=== PATIENT | male | born 1950 | race Caucasian/White ===

== ENCOUNTER 2017-08-01 10:56 | Inpatient (IN) | payer MEDICARE ==
[~2017-08-01] VITALS: Ht 182.9 cm; Wt 89.7 kg
[~2017-08-01 10:56] MED LIST: AMLO-511 PO; CARV6 PO; FURO20 PO; RIVA15T PO
[2017-08-01] MEDS ORDERED: ASPIRIN 81 MG CHEWABLE TABLET PO ONE (11:15)
[2017-08-01] MEDS ORDERED: LORazepam 2 MG/ML VIAL IVP ONE (11:30)
[2017-08-01 11:45] LABS: BASOPHILS % (AUTO) 0.6 % (0.0-2.0); EOSINOPHILS % (AUTO) 0.2 % (1.0-6.0); HEMOGLOBIN 16.1 g/dL (13.5-17.5); LYMPHOCYTES # (AUTO) 1.2 K/uL (1.0-4.8); LYMPHOCYTES % (AUTO) 12.8 % (22.0-44.0); MEAN CORPUSCULAR HEMOGLOBIN 31.7 pg (26.0-34.0); MEAN CORPUSCULAR HGB CONC 33.5 G/dL (31.0-37.0); MEAN CORPUSCULAR VOLUME 95 fL (80-100); MONOCYTES # (AUTO) 0.8 K/uL (0.1-1.0); MONOCYTES % (AUTO) 8.5 % (2.0-9.0); NEUTROPHILS # (AUTO) 7.5 K/uL (1.8-7.7); NEUTROPHILS % (AUTO) 77.9 % (40.0-70.0); PLATELET COUNT (AUTO) 190 K/uL (150-450); RED BLOOD CELL COUNT(AUTO) 5.07 MIL/uL (4.50-5.90); RED CELL DISTRIBUTION WIDTH 15.6 % (11.5-14.5)
[2017-08-01 11:49] LABS: CALCIUM, TOTAL 8.9 mg/dL (8.8-10.5); CREATININE 1.74 mg/dL (0.60-1.30); POTASSIUM 3.9 mmol/L (3.5-5.1)
[2017-08-01 11:52] LABS: INR 1.1 (0.9-1.1); PROTHROMBIN TIME 11.4 SEC (9.4-11.6)
[2017-08-01 12:14] LABS: ALBUMIN 3.4 g/dL (3.4-5.0); BILIRUBIN,TOTAL 0.7 mg/dL (0.1-1.0); CKMB RELATIVE INDEX 4.4 % (0.0-4.0); CREATINE KINASE MB 8.3 ng/mL (0-5); THYROID STIMULATING HORMONE 3.51 uIU/mL (0.36-3.74); TOTAL PROTEIN, SERUM 6.9 g/dL (6.4-8.2)
[2017-08-01] MEDS ORDERED: DILTIAZEM HCL 5 MG/ML 5 ML VIAL IVP ONE (12:15)
[2017-08-01] MEDS ORDERED: NITROGLYCERIN 2% (1 GM=INCH) PACKET TP ONE (12:15)
[2017-08-01] MEDS: NITROGLYCERIN 0.4 MG SUBLINGUAL TABLET #25 SL ONE ×2 (13:01→13:19)
[2017-08-01] MEDS ORDERED: DILTIAZEM HCL 125 MG in DEXTROSE 5%-WATER 100 ML IV PRN (13:30)
[2017-08-01 15:16] LABS: APPEARANCE,URINE CLEAR (CLEAR); BILIRUBIN,URINE NEGATIVE (NEGATIVE); GLUCOSE, URINE (UA) NEGATIVE (NEGATIVE); KETONES,URINE NEGATIVE (NEGATIVE); LEUKOCYTE ESTERASE ,URINE NEGATIVE (NEGATIVE); NITRATE,URINE NEGATIVE (NEGATIVE); OCCULT BLOOD,URINE NEGATIVE (NEGATIVE); PH,URINE 5.5 (5.0-8.0); PROTEIN,URINE SEE CONFIRM (NEGATIVE); UROBILINOGEN,URINE 0.2 mg/dL (<=1.0)
[2017-08-01 15:19] LABS: AMPHET/METH SCREEN,URINE NEGATIVE (NEGATIVE); BARBITURATE SCREEN, URINE NEGATIVE (NEGATIVE); BENZODIAZEPINES SCREEN,URINE NEGATIVE (NEGATIVE); CANNABINOID SCREEN,URINE NEGATIVE (NEGATIVE); COCAINE SCREEN,URINE NEGATIVE (NEGATIVE); METHADONE SCREEN, URINE NEGATIVE (NEGATIVE); OPIATE SCREEN,URINE NEGATIVE (NEGATIVE)
[2017-08-01 15:22] LABS: PHENCYCLIDINE SCREEN,URINE NEGATIVE (NEGATIVE)
[2017-08-01] MEDS ORDERED: METOPROLOL SUCCINATE 25 MG ER TABLET PO ONE (15:45)
[2017-08-01] MEDS ORDERED: ACETAMINOPHEN 325 MG TABLET PO PRN ×2 (15:45→20:00)
[2017-08-01] MEDS ORDERED: 0.9% SODIUM CHLORIDE 10 ML SYRINGE IVP PRN (15:45)
[2017-08-01 15:47] LABS: SULFOSALICYLIC ACID,URINE 2+ (Negative)
[2017-08-01 15:51] LABS: BACTERIA,URINE Rare /HPF (None Seen); RBC,URINE 0-2 /HPF (0-2); WBC,URINE None Seen /HPF (0-5)
[2017-08-01 15:52] LABS: HYALINE CASTS, URINE 0-2 /LPF (None Seen); SQUAMOUS EPITHELIAL CELL,UR Rare /LPF (None Seen)
[2017-08-01] MEDS: METOPROLOL TARTRATE 25 MG TABLET PO SCH ×2 (16:18→22:15)
[2017-08-01] MEDS: APIXABAN 5 MG TABLET PO SCH ×2 (16:19→22:15)
[2017-08-01] MEDS ORDERED: DILTIAZEM HCL 125 MG in DEXTROSE 5%-WATER 100 ML IV SCH (20:00)
[2017-08-01] MEDS ORDERED: BISACODYL 10 MG RECTAL RECTAL SUPPOSITORY PR PRN (20:00)
[2017-08-01] MEDS ORDERED: ONDANSETRON HCL 4 MG/2 ML VIAL IVP PRN (20:00)
[2017-08-01] MEDS ORDERED: ZOLPIDEM TARTRATE 5 MG TABLET PO PRN (20:00)
[2017-08-01] MEDS ORDERED: HYDROCODONE/ACETAMINOPHEN 5-325 MG TABLET PO PRN (20:00)
[2017-08-01] MEDS ORDERED: MAGNESIUM HYDROXIDE SUSPENSION 30 ML UDCUP PO PRN (20:00)
[2017-08-01 20:56] VITALS: BP 117/79
[2017-08-01] MEDS ORDERED: METOPROLOL SUCCINATE 25 MG ER TABLET PO SCH ×2 (21:00)
[2017-08-01] MEDS ORDERED: DILTIAZEM HCL 125 MG in DEXTROSE 5%-WATER 100 ML IV ONE (22:00)
[2017-08-01] MEDS: DOCUSATE SODIUM 100 MG CAPSULE PO SCH (22:15)
[2017-08-01 23:33] VITALS: BP 118/62
[2017-08-02 04:01] VITALS: BP 114/59
[2017-08-02 06:27] LABS: BASOPHILS % (AUTO) 0.4 % (0.0-2.0); EOSINOPHILS % (AUTO) 0.4 % (1.0-6.0); HEMATOCRIT 43.6 % (41-53); INR 1.2 (0.9-1.1); LYMPHOCYTES # (AUTO) 1.6 K/uL (1.0-4.8); MEAN CORPUSCULAR HEMOGLOBIN 32.3 pg (26.0-34.0); MEAN CORPUSCULAR HGB CONC 34.4 G/dL (31.0-37.0); MEAN CORPUSCULAR VOLUME 94 fL (80-100); MONOCYTES % (AUTO) 10.4 % (2.0-9.0); NEUTROPHILS # (AUTO) 7.3 K/uL (1.8-7.7); NEUTROPHILS % (AUTO) 72.8 % (40.0-70.0); PLATELET COUNT (AUTO) 195 K/uL (150-450); PROTHROMBIN TIME 12.5 SEC (9.4-11.6); RED BLOOD CELL COUNT(AUTO) 4.64 MIL/uL (4.50-5.90); RED CELL DISTRIBUTION WIDTH 15.3 % (11.5-14.5)
[2017-08-02 07:23] VITALS: BP 130/91
[2017-08-02 07:27] LABS: BILIRUBIN,TOTAL 1.1 mg/dL (0.1-1.0); CALCIUM, TOTAL 8.5 mg/dL (8.8-10.5); CREATININE 2.43 mg/dL (0.60-1.30); POTASSIUM 4.2 mmol/L (3.5-5.1)
[2017-08-02] MEDS: DOCUSATE SODIUM 100 MG CAPSULE PO SCH ×2 (08:11→21:00)
[2017-08-02] MEDS: APIXABAN 5 MG TABLET PO SCH ×2 (08:11→21:00)
[2017-08-02] MEDS: HEPARIN SODIUM,PORCINE 5,000 UNITS/ML VIAL SQ SCH ×3 (08:11→17:06)
[2017-08-02] MEDS: METOPROLOL TARTRATE 25 MG TABLET PO SCH ×2 (08:11→21:00)
[2017-08-02] MEDS: PANTOPRAZOLE SODIUM 40 MG DR TABLET PO SCH (08:11)
[2017-08-02] MEDS ORDERED: FUROSEMIDE 20 MG/2 ML VIAL IVP SCH (09:00)
[2017-08-02 11:11] VITALS: BP 119/77
[2017-08-02] MEDS ORDERED: SODIUM CHLORIDE 0.9% 1,000 ML IV ONE (11:30)
[2017-08-02 15:43] VITALS: BP 140/70
[2017-08-02] MEDS ORDERED: LORazepam 2 MG/ML VIAL IVP PRN (17:00)
[2017-08-02 19:39] VITALS: BP 129/76
[2017-08-02] MEDS: LORazepam 2 MG/ML VIAL IVP PRN (22:24)
[2017-08-03] VITALS (8 sets, daily range): BP systolic 142–187; BP diastolic 53–119
[2017-08-03] MEDS: MORPHINE SULFATE 2 MG/ML SYRINGE IVP PRN ×2 (00:29→20:48)
[2017-08-03] MEDS: HEPARIN SODIUM,PORCINE 5,000 UNITS/ML VIAL SQ SCH ×3 (00:32→15:52)
[2017-08-03] MEDS: LORazepam 2 MG/ML VIAL IVP PRN ×4 (03:38→19:38)
[2017-08-03 07:30] LABS: CALCIUM, TOTAL 8.5 mg/dL (8.8-10.5); CREATININE 2.59 mg/dL (0.60-1.30)
[2017-08-03] MEDS: APIXABAN 5 MG TABLET PO SCH ×2 (08:24→19:43)
[2017-08-03] MEDS: DOCUSATE SODIUM 100 MG CAPSULE PO SCH ×2 (08:24→19:43)
[2017-08-03] MEDS: METOPROLOL TARTRATE 25 MG TABLET PO SCH (08:25)
[2017-08-03] MEDS: PANTOPRAZOLE SODIUM 40 MG DR TABLET PO SCH (08:26)
[2017-08-03] MEDS: HALOPERIDOL LACTATE 5 MG/ML VIAL IM PRN ×3 (10:57→23:13)
[2017-08-03] MEDS: LACTULOSE 200 GM/300 ML RECTAL SOLUTION PR SCH ×2 (12:30→20:46)
[2017-08-03] MEDS: METOPROLOL TARTRATE 5 MG/5 ML VIAL IVP SCH ×2 (13:57→18:29)
[2017-08-03] MEDS ORDERED: SODIUM CHLORIDE 0.9% IRRIG BTL 1,000 ML IRRIG ONE (20:00)
[2017-08-04] VITALS (8 sets, daily range): BP systolic 108–162; BP diastolic 81–113
[2017-08-04] MEDS: HEPARIN SODIUM,PORCINE 5,000 UNITS/ML VIAL SQ SCH ×2 (00:07→09:23)
[2017-08-04] MEDS: METOPROLOL TARTRATE 5 MG/5 ML VIAL IVP SCH ×5 (00:07→23:34)
[2017-08-04] MEDS: LORazepam 2 MG/ML VIAL IVP PRN ×2 (00:21→05:25)
[2017-08-04] MEDS: APIXABAN 5 MG TABLET PO SCH (09:00)
[2017-08-04] MEDS: PANTOPRAZOLE SODIUM 40 MG DR TABLET PO SCH (09:00)
[2017-08-04] MEDS: DOCUSATE SODIUM 100 MG CAPSULE PO SCH ×2 (09:00→21:37)
[2017-08-04] MEDS ORDERED: SODIUM CHLORIDE 0.9% 1,000 ML IV ONE (09:18)
[2017-08-04] MEDS: LACTULOSE 200 GM/300 ML RECTAL SOLUTION PR SCH ×2 (09:23→21:37)
[2017-08-04] MEDS ORDERED: AMIODARONE HCL 360 MG in DEXTROSE 5%-WATER 242.8 ML IV ONE (11:15)
[2017-08-04] MEDS ORDERED: AMIODARONE HCL 150 MG in DEXTROSE 5%-WATER 97 ML IV ONE (11:15)
[2017-08-04] MEDS ORDERED: HEPARIN SODIUM,PORCINE 5,000 UNITS/ML VIAL IVP ONE (12:45)
[2017-08-04] MEDS ORDERED: HEPARIN SODIUM,PORCINE 5,000 UNITS/ML VIAL IVP PRN ×2 (12:45)
[2017-08-04 12:57] LABS: BASOPHILS % (AUTO) 0.4 % (0.0-2.0); EOSINOPHILS % (AUTO) 0.1 % (1.0-6.0); HEMATOCRIT 45.4 % (41-53); HEMOGLOBIN 15.2 g/dL (13.5-17.5); LYMPHOCYTES # (AUTO) 1.2 K/uL (1.0-4.8); LYMPHOCYTES % (AUTO) 13.8 % (22.0-44.0); MEAN CORPUSCULAR HGB CONC 33.5 G/dL (31.0-37.0); MEAN CORPUSCULAR VOLUME 96 fL (80-100); MONOCYTES # (AUTO) 0.8 K/uL (0.1-1.0); MONOCYTES % (AUTO) 9.9 % (2.0-9.0); NEUTROPHILS # (AUTO) 6.4 K/uL (1.8-7.7); NEUTROPHILS % (AUTO) 75.8 % (40.0-70.0); PLATELET COUNT (AUTO) 212 K/uL (150-450); RED BLOOD CELL COUNT(AUTO) 4.74 MIL/uL (4.50-5.90)
[2017-08-04 13:12] LABS: INR 1.3 (0.9-1.1); PROTHROMBIN TIME 13.3 SEC (9.4-11.6)
[2017-08-04] MEDS: HALOPERIDOL LACTATE 5 MG/ML VIAL IM PRN (13:55)
[2017-08-04] MEDS: MORPHINE SULFATE 2 MG/ML SYRINGE IVP PRN (14:26)
[2017-08-04] MEDS: HEPARIN SODIUM 25000 UNITS/D5W 250 ML IV PRN (14:27)
[2017-08-04] MEDS ORDERED: MAGNESIUM SULFATE 2 GM, MVI, ADULT NO.1 WITH VIT K 10 ML, THIAMINE HCL 100 MG, FOLIC AC... IV ONE ×5 (15:00)
[2017-08-04 16:02] LABS: ABG A-A DIFF O2 122.4 mmHg (10-20.0); ABG BASE EXCESS -8.9 mmol/L (-2.0-3.0); ABG CARBOXYHEMOGLOBIN 1.5 % (0.0-1.5); ABG HCO3 17.9 mmol/L (22.0-26.0); ABG METHEMOGLOBIN 0.2 % (0.0-1.5); ABG OXYGEN CONTENT 19.8 mL/dL (15.0-23.0); ABG OXYGEN SATURATION 95.2 % (95.0-98.0); ABG OXYHEMOGLOBIN 93.6 % (94.0-100.0); ABG PCO2 39 mmHg (35-45); ABG PH 7.282 (7.35-7.450); PO2, ARTERIAL BG 89.4 mmHg (79.0-87.0); SOURCE, BLOOD GAS ARTERIAL; TEMPERATURE, FAHRENHEIT, BG 98.6 FAHREN (96.0-98.6)
[2017-08-04 16:03] LABS: SITE, BLOOD GAS RT RADIAL
[2017-08-04 16:04] LABS: O2 DEVICE,BLOOD GAS CANNULA (ROOM AIR)
[2017-08-04] MEDS ORDERED: ETOMIDATE 2 MG/ML 10 ML VIAL IV ONE (16:53)
[2017-08-04] MEDS ORDERED: VECURONIUM BROMIDE 10 MG/VIAL IV ONE (16:53)
[2017-08-04] MEDS ORDERED: RAPID SEQUENCE KIT [RSI] 1 EACH KIT ONE (16:54)
[2017-08-04] MEDS ORDERED: AMIODARONE HCL 540 MG in DEXTROSE 5%-WATER 239.2 ML IV ONE (17:15)
[2017-08-04] MEDS ORDERED: PROPOFOL 1000 MG/ISO-OSM 100 ML IV PRN (17:25)
[2017-08-04] MEDS ORDERED: ETOMIDATE 2 MG/ML 10 ML VIAL IVP ONE (17:30)
[2017-08-04] MEDS ORDERED: VECURONIUM BROMIDE 10 MG/VIAL IVP ONE (17:30)
[2017-08-04 19:00] LABS: CALCIUM, TOTAL 8.1 mg/dL (8.8-10.5); CREATININE 3.42 mg/dL (0.60-1.30); PHOSPHORUS 8.3 mg/dL (2.5-4.9); POTASSIUM 4.4 mmol/L (3.5-5.1)
[2017-08-04 19:36] LABS: ABG A-A DIFF O2 82.6 mmHg (10-20.0); ABG BASE EXCESS -7.8 mmol/L (-2.0-3.0); ABG CARBOXYHEMOGLOBIN 1.1 % (0.0-1.5); ABG HCO3 18.7 mmol/L (22.0-26.0); ABG METHEMOGLOBIN 0.3 % (0.0-1.5); ABG OXYGEN CONTENT 20.5 mL/dL (15.0-23.0); ABG OXYHEMOGLOBIN 97.6 % (94.0-100.0); ABG PCO2 38 mmHg (35-45); ABG PH 7.306 (7.35-7.450); ABG TOTAL HEMOGLOBIN 14.7 G/dL (12.0-18.0); PO2, ARTERIAL BG 159.5 mmHg (79.0-87.0); SOURCE, BLOOD GAS ARTERIAL; TEMPERATURE, FAHRENHEIT, BG 97.5 FAHREN (96.0-98.6)
[2017-08-04 19:37] LABS: O2 DEVICE,BLOOD GAS VENTILATOR (ROOM AIR); PEEP,BG 5 cm H2O; SITE, BLOOD GAS RT RADIAL; VT, ABG 550 ml
[2017-08-05] VITALS (8 sets, daily range): BP systolic 105–151; BP diastolic 58–110
[2017-08-05] MEDS ORDERED: PROPOFOL 1000 MG/ISO-OSM 100 ML IV ONE (01:13)
[2017-08-05] MEDS: PROPOFOL 1000 MG/ISO-OSM 100 ML IV PRN ×3 (01:22→17:11)
[2017-08-05 03:15] LABS: BASOPHILS % (AUTO) 0.2 % (0.0-2.0); EOSINOPHILS % (AUTO) 0.2 % (1.0-6.0); HEMATOCRIT 44.1 % (41-53); HEMOGLOBIN 14.6 g/dL (13.5-17.5); LYMPHOCYTES # (AUTO) 1.1 K/uL (1.0-4.8); LYMPHOCYTES % (AUTO) 11.5 % (22.0-44.0); MEAN CORPUSCULAR HEMOGLOBIN 31.7 pg (26.0-34.0); MEAN CORPUSCULAR VOLUME 96 fL (80-100); MONOCYTES # (AUTO) 1.2 K/uL (0.1-1.0); MONOCYTES % (AUTO) 12.2 % (2.0-9.0); NEUTROPHILS # (AUTO) 7.3 K/uL (1.8-7.7); NEUTROPHILS % (AUTO) 75.9 % (40.0-70.0); PLATELET COUNT (AUTO) 207 K/uL (150-450); RED BLOOD CELL COUNT(AUTO) 4.59 MIL/uL (4.50-5.90)
[2017-08-05 03:24] LABS: ALBUMIN 2.9 g/dL (3.4-5.0); BILIRUBIN,TOTAL 1.3 mg/dL (0.1-1.0); CALCIUM, TOTAL 8.1 mg/dL (8.8-10.5); CREATININE 3.72 mg/dL (0.60-1.30); MAGNESIUM 3.5 mg/dL (1.80-2.40); POTASSIUM 4.4 mmol/L (3.5-5.1); TOTAL PROTEIN, SERUM 5.6 g/dL (6.4-8.2)
[2017-08-05 03:37] LABS: PHOSPHORUS 8.7 mg/dL (2.5-4.9)
[2017-08-05 03:45] LABS: LYMPHOCYTES % (MANUAL) 17 % (22-44); MONOCYTES % (MANUAL) 15 % (2-9); SEGMENTED NEUTROPHILS % 68 % (40-70)
[2017-08-05] MEDS: METOPROLOL TARTRATE 5 MG/5 ML VIAL IVP SCH ×3 (05:52→17:10)
[2017-08-05] MEDS ORDERED: SODIUM CHLORIDE 0.9% 250 ML IV ONE (06:17)
[2017-08-05 08:10] LABS: ABG METHEMOGLOBIN 0.2 % (0.0-1.5); SOURCE, BLOOD GAS ARTERIAL; TEMPERATURE, FAHRENHEIT, BG 97.8 FAHREN (96.0-98.6)
[2017-08-05 08:12] LABS: ABG A-A DIFF O2 90.9 mmHg (10-20.0); ABG BASE EXCESS -7.5 mmol/L (-2.0-3.0); ABG CARBOXYHEMOGLOBIN 1.1 % (0.0-1.5); ABG HCO3 19.1 mmol/L (22.0-26.0); ABG OXYGEN CONTENT 20.7 mL/dL (15.0-23.0); ABG OXYGEN SATURATION 98.1 % (95.0-98.0); ABG OXYHEMOGLOBIN 96.8 % (94.0-100.0); ABG PCO2 35 mmHg (35-45); ABG PH 7.334 (7.35-7.450); ABG TOTAL HEMOGLOBIN 15.1 G/dL (12.0-18.0)
[2017-08-05 08:13] LABS: O2 DEVICE,BLOOD GAS VENTILATOR (ROOM AIR); PEEP,BG 5 cm H2O; SITE, BLOOD GAS RT RADIAL; VT, ABG 550 ml
[2017-08-05] MEDS ORDERED: LACTULOSE 20 GM/30 ML SOLUTION UDCUP PO PRN (08:30)
[2017-08-05] MEDS: PANTOPRAZOLE SODIUM 40 MG DR TABLET PO SCH (08:46)
[2017-08-05] MEDS: DOCUSATE SODIUM 100 MG CAPSULE PO SCH ×2 (08:46→21:24)
[2017-08-05] MEDS: LACTULOSE 20 GM/30 ML SOLUTION UDCUP PO SCH ×2 (08:59→21:24)
[2017-08-05] MEDS ORDERED: HEPARIN SODIUM 1000 UNITS/NS 500 ML ONE (10:23)
[2017-08-05] MEDS ORDERED: HEPARIN SODIUM,PORCINE 1,000 UNITS/ML 10 ML VIAL ONE (10:23)
[2017-08-05] MEDS ORDERED: LIDOCAINE HCL/PF 1% 30 ML VIAL ONE (10:23)
[2017-08-05] MEDS ORDERED: CeFAZolin 1 GM/DEXTROSE 0 ML IV ONE (10:38)
[2017-08-05] MEDS: AMIODARONE HCL 750 MG in DEXTROSE 5%-WATER 485 ML IV SCH (10:43)
[2017-08-05 13:06] LABS: CKMB RELATIVE INDEX 1.3 % (0.0-4.0); CREATINE KINASE MB 5.3 ng/mL (0-5)
[2017-08-05] MEDS: HEPARIN SODIUM 25000 UNITS/D5W 250 ML IV PRN (14:07)
[2017-08-05] MEDS ORDERED: HEPARIN SODIUM,PORCINE 1,000 UNITS/ML VIAL IVP SCH (15:45)
[2017-08-05] MEDS ORDERED: HEPARIN SODIUM,PORCINE 1,000 UNITS/ML VIAL IVP ONE (16:52)
[2017-08-06] VITALS (8 sets, daily range): BP systolic 129–158; BP diastolic 62–98
[2017-08-06] MEDS: METOPROLOL TARTRATE 5 MG/5 ML VIAL IVP SCH ×5 (00:23→23:33)
[2017-08-06] MEDS: PROPOFOL 1000 MG/ISO-OSM 100 ML IV PRN ×4 (00:31→23:06)
[2017-08-06 05:22] LABS: BASOPHILS % (AUTO) 0.3 % (0.0-2.0); EOSINOPHILS % (AUTO) 0.4 % (1.0-6.0); HEMATOCRIT 41.5 % (41-53); HEMOGLOBIN 13.9 g/dL (13.5-17.5); LYMPHOCYTES # (AUTO) 0.8 K/uL (1.0-4.8); LYMPHOCYTES % (AUTO) 8.2 % (22.0-44.0); MEAN CORPUSCULAR HGB CONC 33.5 G/dL (31.0-37.0); MEAN CORPUSCULAR VOLUME 96 fL (80-100); MONOCYTES # (AUTO) 1.3 K/uL (0.1-1.0); MONOCYTES % (AUTO) 13.2 % (2.0-9.0); NEUTROPHILS # (AUTO) 7.5 K/uL (1.8-7.7); NEUTROPHILS % (AUTO) 77.9 % (40.0-70.0); PLATELET COUNT (AUTO) 187 K/uL (150-450); RED BLOOD CELL COUNT(AUTO) 4.35 MIL/uL (4.50-5.90); RED CELL DISTRIBUTION WIDTH 16.2 % (11.5-14.5)
[2017-08-06 05:43] LABS: ALBUMIN 2.7 g/dL (3.4-5.0); BILIRUBIN,TOTAL 0.9 mg/dL (0.1-1.0); CREATININE 3.69 mg/dL (0.60-1.30); PHOSPHORUS 6.4 mg/dL (2.5-4.9); POTASSIUM 3.9 mmol/L (3.5-5.1); TOTAL PROTEIN, SERUM 5.8 g/dL (6.4-8.2)
[2017-08-06 08:21] LABS: ABG BASE EXCESS -8.9 mmol/L (-2.0-3.0); ABG CARBOXYHEMOGLOBIN 1.2 % (0.0-1.5); ABG HCO3 18.8 mmol/L (22.0-26.0); ABG METHEMOGLOBIN 0.4 % (0.0-1.5); ABG OXYGEN CONTENT 21.1 mL/dL (15.0-23.0); ABG OXYGEN SATURATION 99.7 % (95.0-98.0); ABG OXYHEMOGLOBIN 98.1 % (94.0-100.0); ABG PCO2 26 mmHg (35-45); ABG TOTAL HEMOGLOBIN 14.8 G/dL (12.0-18.0); PO2, ARTERIAL BG 306.6 mmHg (79.0-87.0); SOURCE, BLOOD GAS ARTERIAL; TEMPERATURE, FAHRENHEIT, BG 98.6 FAHREN (96.0-98.6)
[2017-08-06 08:22] LABS: O2 DEVICE,BLOOD GAS VENTILATOR (ROOM AIR); SITE, BLOOD GAS RT RADIAL
[2017-08-06 08:23] LABS: PEEP,BG 5 cm H2O; VT, ABG 550 ml
[2017-08-06] MEDS: LACTULOSE 20 GM/30 ML SOLUTION UDCUP PO SCH ×2 (09:21→20:39)
[2017-08-06] MEDS: DOCUSATE SODIUM 100 MG CAPSULE PO SCH ×2 (09:21→20:39)
[2017-08-06] MEDS: PANTOPRAZOLE SODIUM 40 MG DR TABLET PO SCH (09:21)
[2017-08-06] MEDS ORDERED: POTASSIUM CHL 10 MEQ/WATER 50 ML IV ONE (09:45)
[2017-08-06] MEDS: AMIODARONE HCL 750 MG in DEXTROSE 5%-WATER 485 ML IV SCH (11:31)
[2017-08-06] MEDS ORDERED: SODIUM CHLORIDE 0.9% 2,000 ML IV ONE (11:42)
[2017-08-06] MEDS ORDERED: DIGOXIN 250 MCG/ML 2 ML AMP IVP ONE (13:30)
[2017-08-06] MEDS: HEPARIN SODIUM 25000 UNITS/D5W 250 ML IV PRN (14:27)
[2017-08-06] MEDS ORDERED: HEPARIN SODIUM,PORCINE 1,000 UNITS/ML VIAL IVP ONE (17:04)
[2017-08-06] MEDS: MORPHINE SULFATE 2 MG/ML SYRINGE IVP PRN (22:12)
[2017-08-07] VITALS (11 sets, daily range): BP systolic 112–155; BP diastolic 66–99
[2017-08-07] MEDS ORDERED: SODIUM CHLORIDE 0.9% 250 ML IV ONE (04:56)
[2017-08-07] MEDS: PROPOFOL 1000 MG/ISO-OSM 100 ML IV PRN ×3 (05:05→23:15)
[2017-08-07] MEDS: METOPROLOL TARTRATE 5 MG/5 ML VIAL IVP SCH (05:07)
[2017-08-07 05:30] LABS: BASOPHILS % (AUTO) 0.4 % (0.0-2.0); EOSINOPHILS % (AUTO) 0.8 % (1.0-6.0); HEMOGLOBIN 13.1 g/dL (13.5-17.5); LYMPHOCYTES # (AUTO) 0.6 K/uL (1.0-4.8); LYMPHOCYTES % (AUTO) 7.5 % (22.0-44.0); MEAN CORPUSCULAR HEMOGLOBIN 31.8 pg (26.0-34.0); MEAN CORPUSCULAR HGB CONC 33.6 G/dL (31.0-37.0); MEAN CORPUSCULAR VOLUME 95 fL (80-100); MONOCYTES # (AUTO) 1.2 K/uL (0.1-1.0); MONOCYTES % (AUTO) 14.2 % (2.0-9.0); NEUTROPHILS # (AUTO) 6.6 K/uL (1.8-7.7); NEUTROPHILS % (AUTO) 77.1 % (40.0-70.0); PLATELET COUNT (AUTO) 154 K/uL (150-450); RED BLOOD CELL COUNT(AUTO) 4.12 MIL/uL (4.50-5.90); RED CELL DISTRIBUTION WIDTH 15.8 % (11.5-14.5)
[2017-08-07 06:00] LABS: CREATININE 2.44 mg/dL (0.60-1.30); MAGNESIUM 2.3 mg/dL (1.80-2.40); PHOSPHORUS 4.4 mg/dL (2.5-4.9); POTASSIUM 3.7 mmol/L (3.5-5.1)
[2017-08-07] MEDS: MORPHINE SULFATE 2 MG/ML SYRINGE IVP PRN (07:57)
[2017-08-07] MEDS: LACTULOSE 20 GM/30 ML SOLUTION UDCUP PO SCH ×3 (07:58→20:46)
[2017-08-07] MEDS: PANTOPRAZOLE SODIUM 40 MG DR TABLET PO SCH (07:58)
[2017-08-07] MEDS: DOCUSATE SODIUM 100 MG CAPSULE PO SCH ×2 (07:58→20:44)
[2017-08-07] MEDS: HEPARIN SODIUM 25000 UNITS/D5W 250 ML IV PRN (09:34)
[2017-08-07] MEDS: APIXABAN 5 MG TABLET PO SCH ×2 (10:16→20:44)
[2017-08-07] MEDS: METOPROLOL TARTRATE 25 MG TABLET PO SCH ×2 (10:16→20:44)
[2017-08-07] MEDS: RIFAXIMIN 550 MG TABLET PO SCH ×2 (10:16→20:44)
[2017-08-07] MEDS: AMIODARONE HCL 750 MG in DEXTROSE 5%-WATER 485 ML IV SCH (11:51)
[2017-08-07] MEDS: MORPHINE SULFATE 4 MG/ML SYRINGE IVP PRN ×2 (17:33→23:20)
[2017-08-08] VITALS (9 sets, daily range): BP systolic 125–170; BP diastolic 62–94
[2017-08-08 05:08] LABS: BASOPHILS % (AUTO) 0.4 % (0.0-2.0); EOSINOPHILS % (AUTO) 1.2 % (1.0-6.0); HEMATOCRIT 38.9 % (41-53); HEMOGLOBIN 13.1 g/dL (13.5-17.5); LYMPHOCYTES % (AUTO) 11.5 % (22.0-44.0); MEAN CORPUSCULAR HEMOGLOBIN 32.3 pg (26.0-34.0); MEAN CORPUSCULAR HGB CONC 33.8 G/dL (31.0-37.0); MEAN CORPUSCULAR VOLUME 96 fL (80-100); MONOCYTES # (AUTO) 1.2 K/uL (0.1-1.0); MONOCYTES % (AUTO) 14.2 % (2.0-9.0); NEUTROPHILS # (AUTO) 6.2 K/uL (1.8-7.7); NEUTROPHILS % (AUTO) 72.7 % (40.0-70.0); PLATELET COUNT (AUTO) 117 K/uL (150-450); RED BLOOD CELL COUNT(AUTO) 4.06 MIL/uL (4.50-5.90); RED CELL DISTRIBUTION WIDTH 16.2 % (11.5-14.5)
[2017-08-08 05:19] LABS: CALCIUM, TOTAL 8.3 mg/dL (8.8-10.5); CREATININE 2.46 mg/dL (0.60-1.30); MAGNESIUM 2.6 mg/dL (1.80-2.40); PHOSPHORUS 4.7 mg/dL (2.5-4.9); POTASSIUM 3.8 mmol/L (3.5-5.1)
[2017-08-08] MEDS: PROPOFOL 1000 MG/ISO-OSM 100 ML IV PRN ×3 (05:26→23:58)
[2017-08-08 05:45] LABS: PLATELET MORPHOLOGY COMMENT LARGE PLTS PRESENT
[2017-08-08] MEDS ORDERED: SODIUM CHLORIDE 0.9% 250 ML IV ONE ×2 (06:13→21:55)
[2017-08-08] MEDS ORDERED: SODIUM CHLORIDE 0.9% 2,000 ML IV ONE (07:59)
[2017-08-08 08:28] LABS: ABG A-A DIFF O2 109.2 mmHg (10-20.0); ABG BASE EXCESS 0.4 mmol/L (-2.0-3.0); ABG CARBOXYHEMOGLOBIN 1.3 % (0.0-1.5); ABG HCO3 24.9 mmol/L (22.0-26.0); ABG METHEMOGLOBIN 0.3 % (0.0-1.5); ABG OXYGEN SATURATION 97.5 % (95.0-98.0); ABG OXYHEMOGLOBIN 95.9 % (94.0-100.0); ABG PCO2 40 mmHg (35-45); ABG PH 7.414 (7.35-7.450); PO2, ARTERIAL BG 93.9 mmHg (79.0-87.0); SOURCE, BLOOD GAS ARTERIAL; TEMPERATURE, FAHRENHEIT, BG 98.6 FAHREN (96.0-98.6)
[2017-08-08 08:29] LABS: O2 DEVICE,BLOOD GAS VENTILATOR (ROOM AIR); PEEP,BG 5 cm H2O; SITE, BLOOD GAS LFT RADIAL; VT, ABG 550 ml
[2017-08-08] MEDS: APIXABAN 5 MG TABLET PO SCH ×2 (08:37→21:57)
[2017-08-08] MEDS: LACTULOSE 20 GM/30 ML SOLUTION UDCUP PO SCH ×3 (08:37→21:57)
[2017-08-08] MEDS: RIFAXIMIN 550 MG TABLET PO SCH ×2 (08:37→21:57)
[2017-08-08] MEDS: METOPROLOL TARTRATE 25 MG TABLET PO SCH (08:37)
[2017-08-08] MEDS: PANTOPRAZOLE SODIUM 40 MG DR TABLET PO SCH (08:38)
[2017-08-08] MEDS: DOCUSATE SODIUM 100 MG CAPSULE PO SCH ×2 (08:38→21:00)
[2017-08-08] MEDS: AMIODARONE HCL 750 MG in DEXTROSE 5%-WATER 485 ML IV SCH (10:47)
[2017-08-08] MEDS: MORPHINE SULFATE 4 MG/ML SYRINGE IVP PRN (14:03)
[2017-08-08] MEDS ORDERED: HEPARIN SODIUM,PORCINE 1,000 UNITS/ML VIAL IVP ONE (17:37)
[2017-08-08] MEDS: METOPROLOL TARTRATE 50 MG TABLET PO SCH (21:57)
[2017-08-09] VITALS: BP 125/68
[2017-08-09 04:00] VITALS: BP 104/66
[2017-08-09 05:19] LABS: BASOPHILS % (AUTO) 0.5 % (0.0-2.0); EOSINOPHILS % (AUTO) 2.9 % (1.0-6.0); HEMATOCRIT 36.8 % (41-53); HEMOGLOBIN 12.6 g/dL (13.5-17.5); LYMPHOCYTES # (AUTO) 0.7 K/uL (1.0-4.8); MEAN CORPUSCULAR HEMOGLOBIN 32.5 pg (26.0-34.0); MEAN CORPUSCULAR HGB CONC 34.3 G/dL (31.0-37.0); MEAN CORPUSCULAR VOLUME 95 fL (80-100); MONOCYTES # (AUTO) 1.2 K/uL (0.1-1.0); MONOCYTES % (AUTO) 14.1 % (2.0-9.0); NEUTROPHILS # (AUTO) 6.4 K/uL (1.8-7.7); NEUTROPHILS % (AUTO) 74.5 % (40.0-70.0); PLATELET COUNT (AUTO) 149 K/uL (150-450); RED BLOOD CELL COUNT(AUTO) 3.88 MIL/uL (4.50-5.90); RED CELL DISTRIBUTION WIDTH 15.8 % (11.5-14.5)
[2017-08-09 05:31] LABS: CALCIUM, TOTAL 8.1 mg/dL (8.8-10.5); CREATININE 2.13 mg/dL (0.60-1.30); MAGNESIUM 2.2 mg/dL (1.80-2.40); PHOSPHORUS 3.5 mg/dL (2.5-4.9); POTASSIUM 3.5 mmol/L (3.5-5.1)
[2017-08-09] MEDS: PROPOFOL 1000 MG/ISO-OSM 100 ML IV PRN ×4 (05:35→23:00)
[2017-08-09 08:00] VITALS: BP 119/73
[2017-08-09] MEDS: HALOPERIDOL LACTATE 5 MG/ML VIAL IM PRN (09:00)
[2017-08-09] MEDS: METOPROLOL TARTRATE 50 MG TABLET PO SCH ×2 (09:01→22:07)
[2017-08-09] MEDS: LACTULOSE 20 GM/30 ML SOLUTION UDCUP PO SCH ×3 (09:01→22:07)
[2017-08-09] MEDS: DOCUSATE SODIUM 100 MG CAPSULE PO SCH ×2 (09:01→22:07)
[2017-08-09] MEDS: PANTOPRAZOLE SODIUM 40 MG DR TABLET PO SCH (09:01)
[2017-08-09] MEDS: AMIODARONE HCL 750 MG in DEXTROSE 5%-WATER 485 ML IV SCH (11:30)
[2017-08-09 12:00] VITALS: BP 167/71
[2017-08-09] MEDS: RIFAXIMIN 550 MG TABLET PO SCH ×2 (14:32→22:07)
[2017-08-09] MEDS: APIXABAN 5 MG TABLET PO SCH ×2 (14:32→22:07)
[2017-08-09 16:00] VITALS: BP 120/68
[2017-08-09 20:00] VITALS: BP 119/75
[2017-08-10] VITALS: BP 103/70
[2017-08-10] MEDS: PROPOFOL 1000 MG/ISO-OSM 100 ML IV PRN ×4 (03:28→23:15)
[2017-08-10 04:00] VITALS: BP 99/70
[2017-08-10 05:14] LABS: BASOPHILS % (AUTO) 0.6 % (0.0-2.0); EOSINOPHILS % (AUTO) 3.4 % (1.0-6.0); HEMATOCRIT 37.5 % (41-53); HEMOGLOBIN 12.6 g/dL (13.5-17.5); LYMPHOCYTES # (AUTO) 0.8 K/uL (1.0-4.8); LYMPHOCYTES % (AUTO) 8.7 % (22.0-44.0); MEAN CORPUSCULAR HEMOGLOBIN 31.9 pg (26.0-34.0); MEAN CORPUSCULAR HGB CONC 33.6 G/dL (31.0-37.0); MEAN CORPUSCULAR VOLUME 95 fL (80-100); MONOCYTES % (AUTO) 10.8 % (2.0-9.0); NEUTROPHILS # (AUTO) 6.8 K/uL (1.8-7.7); NEUTROPHILS % (AUTO) 76.5 % (40.0-70.0); PLATELET COUNT (AUTO) 161 K/uL (150-450); RED BLOOD CELL COUNT(AUTO) 3.95 MIL/uL (4.50-5.90); RED CELL DISTRIBUTION WIDTH 15.9 % (11.5-14.5)
[2017-08-10 05:53] LABS: CALCIUM, TOTAL 8.4 mg/dL (8.8-10.5); CREATININE 2.24 mg/dL (0.60-1.30); MAGNESIUM 2.2 mg/dL (1.80-2.40); POTASSIUM 3.6 mmol/L (3.5-5.1)
[2017-08-10 06:24] LABS: PLATELET MORPHOLOGY COMMENT GIANT PLTS PRESENT
[2017-08-10 08:00] VITALS: BP 121/85
[2017-08-10 08:21] LABS: ABG METHEMOGLOBIN 0.3 % (0.0-1.5); SOURCE, BLOOD GAS ARTERIAL; TEMPERATURE, FAHRENHEIT, BG 98.7 FAHREN (96.0-98.6)
[2017-08-10 08:23] LABS: ABG A-A DIFF O2 124.3 mmHg (10-20.0); ABG BASE EXCESS -0.1 mmol/L (-2.0-3.0); ABG CARBOXYHEMOGLOBIN 1.2 % (0.0-1.5); ABG HCO3 24.6 mmol/L (22.0-26.0); ABG OXYGEN CONTENT 17.7 mL/dL (15.0-23.0); ABG OXYGEN SATURATION 96.4 % (95.0-98.0); ABG PCO2 38 mmHg (35-45); ABG PH 7.427 (7.35-7.450); ABG TOTAL HEMOGLOBIN 13.2 G/dL (12.0-18.0); PO2, ARTERIAL BG 81.2 mmHg (79.0-87.0)
[2017-08-10 08:24] LABS: O2 DEVICE,BLOOD GAS VENTILATOR (ROOM AIR); PEEP,BG 5 cm H2O; SITE, BLOOD GAS RT RADIAL; VT, ABG 550 ml
[2017-08-10] MEDS: PANTOPRAZOLE SODIUM 40 MG DR TABLET PO SCH (09:08)
[2017-08-10] MEDS: DOCUSATE SODIUM 100 MG CAPSULE PO SCH ×2 (09:08→20:31)
[2017-08-10] MEDS: LACTULOSE 20 GM/30 ML SOLUTION UDCUP PO SCH ×3 (09:08→20:43)
[2017-08-10] MEDS: METOPROLOL TARTRATE 50 MG TABLET PO SCH ×3 (09:08→20:43)
[2017-08-10] MEDS: RIFAXIMIN 550 MG TABLET PO SCH ×2 (10:16→21:42)
[2017-08-10] MEDS: APIXABAN 5 MG TABLET PO SCH ×2 (10:16→21:42)
[2017-08-10 12:00] VITALS: BP 123/79
[2017-08-10] MEDS ORDERED: POTASSIUM CHLORIDE 10% 40 MEQ/30 ML LIQUID UDCUP NG ONE (15:45)
[2017-08-10 16:00] VITALS: BP 16/88
[2017-08-10 20:00] VITALS: BP 139/68
[2017-08-10] MEDS: LORazepam 2 MG/ML VIAL IVP PRN (21:10)
[2017-08-11] VITALS: BP 126/68
[2017-08-11 04:00] VITALS: BP 133/80
[2017-08-11] MEDS: PROPOFOL 1000 MG/ISO-OSM 100 ML IV PRN ×2 (04:12→09:12)
[2017-08-11 04:56] LABS: BASOPHILS % (AUTO) 0.4 % (0.0-2.0); EOSINOPHILS % (AUTO) 3.3 % (1.0-6.0); HEMATOCRIT 38.3 % (41-53); HEMOGLOBIN 12.8 g/dL (13.5-17.5); LYMPHOCYTES # (AUTO) 0.7 K/uL (1.0-4.8); LYMPHOCYTES % (AUTO) 7.6 % (22.0-44.0); MEAN CORPUSCULAR HEMOGLOBIN 31.8 pg (26.0-34.0); MEAN CORPUSCULAR HGB CONC 33.4 G/dL (31.0-37.0); MEAN CORPUSCULAR VOLUME 95 fL (80-100); MONOCYTES # (AUTO) 0.9 K/uL (0.1-1.0); MONOCYTES % (AUTO) 9.7 % (2.0-9.0); PLATELET COUNT (AUTO) 168 K/uL (150-450); RED BLOOD CELL COUNT(AUTO) 4.02 MIL/uL (4.50-5.90)
[2017-08-11 08:00] VITALS: BP 127/89
[2017-08-11] MEDS: DOCUSATE SODIUM 100 MG CAPSULE PO SCH ×2 (08:53→20:57)
[2017-08-11] MEDS: APIXABAN 5 MG TABLET PO SCH ×2 (08:53→20:58)
[2017-08-11] MEDS: PANTOPRAZOLE SODIUM 40 MG DR TABLET PO SCH (08:53)
[2017-08-11] MEDS: METOPROLOL TARTRATE 50 MG TABLET PO SCH ×2 (08:53→20:58)
[2017-08-11] MEDS: RIFAXIMIN 550 MG TABLET PO SCH ×2 (08:53→20:58)
[2017-08-11] MEDS: LACTULOSE 20 GM/30 ML SOLUTION UDCUP PO SCH ×3 (08:53→20:57)
[2017-08-11 10:50] LABS: CALCIUM, TOTAL 8.7 mg/dL (8.8-10.5); CREATININE 2.12 mg/dL (0.60-1.30); POTASSIUM 3.7 mmol/L (3.5-5.1)
[2017-08-11 10:54] LABS: MAGNESIUM 2.2 mg/dL (1.80-2.40); PHOSPHORUS 3.7 mg/dL (2.5-4.9)
[2017-08-11 12:00] VITALS: BP 106/46
[2017-08-11 13:10] LABS: C.DIFF GDH ANTIGEN, Stool Negative (Negative); C.DIFF TOXINS A&B, Stool Negative (Negative)
[2017-08-11 15:17] LABS: ABG BASE EXCESS -0.2 mmol/L (-2.0-3.0); ABG CARBOXYHEMOGLOBIN 1.1 % (0.0-1.5); ABG HCO3 24.5 mmol/L (22.0-26.0); ABG METHEMOGLOBIN 0.3 % (0.0-1.5); ABG OXYGEN CONTENT 19.1 mL/dL (15.0-23.0); ABG OXYHEMOGLOBIN 96.6 % (94.0-100.0); ABG PCO2 39 mmHg (35-45); ABG PH 7.415 (7.35-7.450); PO2, ARTERIAL BG 100.3 mmHg (79.0-87.0); SOURCE, BLOOD GAS ARTERIAL; TEMPERATURE, FAHRENHEIT, BG 98.6 FAHREN (96.0-98.6)
[2017-08-11 15:18] LABS: CPAP, BG 0 cm H2O; O2 DEVICE,BLOOD GAS VENTILATOR (ROOM AIR); PEEP,BG 0 cm H2O; PRESSURE SUPPORT, BG 8 cm H2O; SITE, BLOOD GAS RT RADIAL; VENT MODE, BG SPONTANEOUS (ROOM AIR)
[2017-08-11 15:19] LABS: SPONTANEOUS VT, BG 435 ml
[2017-08-11 16:00] VITALS: BP 153/104
[2017-08-11 20:00] VITALS: BP 173/88
[2017-08-12] VITALS (8 sets, daily range): BP systolic 157–189; BP diastolic 91–123
[2017-08-12] MEDS: LORazepam 2 MG/ML VIAL IVP PRN (02:48)
[2017-08-12] MEDS: LACTULOSE 20 GM/30 ML SOLUTION UDCUP PO SCH ×3 (08:26→20:22)
[2017-08-12] MEDS: DOCUSATE SODIUM 100 MG CAPSULE PO SCH ×2 (08:26→20:22)
[2017-08-12] MEDS: METOPROLOL TARTRATE 50 MG TABLET PO SCH ×2 (08:26→20:22)
[2017-08-12] MEDS: APIXABAN 5 MG TABLET PO SCH ×2 (08:26→20:22)
[2017-08-12] MEDS: HALOPERIDOL LACTATE 5 MG/ML VIAL IVP PRN ×2 (08:27→23:23)
[2017-08-12] MEDS: RIFAXIMIN 550 MG TABLET PO SCH ×2 (08:27→20:22)
[2017-08-12] MEDS: PANTOPRAZOLE SODIUM 40 MG DR TABLET PO SCH (08:28)
[2017-08-12] MEDS: MORPHINE SULFATE 4 MG/ML SYRINGE IVP PRN ×2 (11:02→16:37)
[2017-08-12] MEDS: AmLODIPine BESYLATE 5 MG TABLET PO SCH (13:08)
[2017-08-12] MEDS ORDERED: CloNIDine HCL 0.1 MG TABLET PO PRN (14:15)
[2017-08-12] MEDS: HydrALAZINE HCL 20 MG/ML VIAL IVP PRN (17:25)
[2017-08-12 17:45] LABS: APPEARANCE,URINE TURBID (CLEAR); BILIRUBIN,URINE PRELIM. POSITIVE (NEGATIVE); GLUCOSE, URINE (UA) NEGATIVE (NEGATIVE); KETONES,URINE TRACE mg/dL (NEGATIVE); LEUKOCYTE ESTERASE ,URINE MODERATE (NEGATIVE); OCCULT BLOOD,URINE LARGE (NEGATIVE); PH,URINE 5.5 (5.0-8.0); PROTEIN,URINE SEE CONFIRM (NEGATIVE)
[2017-08-12 17:59] LABS: SULFOSALICYLIC ACID,URINE 3+ (Negative)
[2017-08-12 18:00] LABS: BACTERIA,URINE Few /HPF (None Seen); NITRATE,URINE NEGATIVE (NEGATIVE); RBC,URINE 51-100 /HPF (0-2); SQUAMOUS EPITHELIAL CELL,UR Few /LPF (None Seen)
[2017-08-12 18:28] LABS: CREATININE,URINE RANDOM 115.6 mg/dL (30.0-125.0); PROTEIN,URINE RANDOM 314 mg/dL (0-11.9)
[2017-08-13] VITALS (7 sets, daily range): BP systolic 132–167; BP diastolic 56–116
[2017-08-13] MEDS: HydrALAZINE HCL 20 MG/ML VIAL IVP PRN ×3 (06:47→16:33)
[2017-08-13 09:05] LABS: CALCIUM, TOTAL 8.9 mg/dL (8.8-10.5); CREATININE 1.63 mg/dL (0.60-1.30); POTASSIUM 3.9 mmol/L (3.5-5.1)
[2017-08-13 09:08] LABS: BASOPHILS % (AUTO) 0.4 % (0.0-2.0); EOSINOPHILS % (AUTO) 0.5 % (1.0-6.0); HEMATOCRIT 42.3 % (41-53); HEMOGLOBIN 14.3 g/dL (13.5-17.5); LYMPHOCYTES # (AUTO) 0.7 K/uL (1.0-4.8); LYMPHOCYTES % (AUTO) 6.1 % (22.0-44.0); MEAN CORPUSCULAR HEMOGLOBIN 31.7 pg (26.0-34.0); MEAN CORPUSCULAR HGB CONC 33.8 G/dL (31.0-37.0); MEAN CORPUSCULAR VOLUME 94 fL (80-100); MONOCYTES # (AUTO) 1.1 K/uL (0.1-1.0); MONOCYTES % (AUTO) 10.2 % (2.0-9.0); NEUTROPHILS # (AUTO) 8.9 K/uL (1.8-7.7); NEUTROPHILS % (AUTO) 82.8 % (40.0-70.0); PLATELET COUNT (AUTO) 211 K/uL (150-450); RED BLOOD CELL COUNT(AUTO) 4.51 MIL/uL (4.50-5.90); RED CELL DISTRIBUTION WIDTH 15.2 % (11.5-14.5)
[2017-08-13 09:14] LABS: ALBUMIN 2.4 g/dL (3.4-5.0); BILIRUBIN,TOTAL 0.9 mg/dL (0.1-1.0); TOTAL PROTEIN, SERUM 6.6 g/dL (6.4-8.2)
[2017-08-13] MEDS: LACTULOSE 20 GM/30 ML SOLUTION UDCUP PO SCH (10:01)
[2017-08-13] MEDS: DOCUSATE SODIUM 100 MG CAPSULE PO SCH ×2 (10:01→20:49)
[2017-08-13] MEDS: APIXABAN 5 MG TABLET PO SCH ×2 (10:02→20:49)
[2017-08-13] MEDS: METOPROLOL TARTRATE 50 MG TABLET PO SCH ×2 (10:03→20:49)
[2017-08-13] MEDS: AmLODIPine BESYLATE 5 MG TABLET PO SCH (10:03)
[2017-08-13] MEDS: PANTOPRAZOLE SODIUM 40 MG DR TABLET PO SCH (10:04)
[2017-08-13] MEDS: RIFAXIMIN 550 MG TABLET PO SCH ×2 (10:04→20:50)
[2017-08-13] MEDS: DEXTROSE 5%-0.2% SODIUM CHL 1,000 ML IV SCH (16:23)
[2017-08-14] MEDS: METOPROLOL TARTRATE 50 MG TABLET PO SCH ×3 (00:28→20:08)
[2017-08-14 00:32] VITALS: BP 157/84
[2017-08-14 05:25] VITALS: BP 152/104
[2017-08-14] MEDS: DEXTROSE 5%-0.2% SODIUM CHL 1,000 ML IV SCH ×2 (05:49→22:40)
[2017-08-14 08:05] VITALS: BP 147/93
[2017-08-14] MEDS: DOCUSATE SODIUM 100 MG CAPSULE PO SCH ×2 (08:29→20:09)
[2017-08-14] MEDS: RIFAXIMIN 550 MG TABLET PO SCH ×2 (08:29→20:08)
[2017-08-14] MEDS: PANTOPRAZOLE SODIUM 40 MG DR TABLET PO SCH (08:29)
[2017-08-14] MEDS: AmLODIPine BESYLATE 5 MG TABLET PO SCH (08:29)
[2017-08-14] MEDS: APIXABAN 5 MG TABLET PO SCH ×2 (08:29→20:08)
[2017-08-14] MEDS ORDERED: ALBUTEROL SULFATE 2.5 MG/0.5 ML NEB SOLUTION NEB PRN (09:45)
[2017-08-14 11:23] VITALS: BP 125/85
[2017-08-14 14:27] LABS: ALPHA-1 (IFE & PEP) 0.4 g/dL (0.0-0.4); GAMMA GLOBULINS (IFE & ELP) 0.6 g/dL (0.4-1.8); IGM (IMMUNOFIXATION) 48 mg/dL (20-172)
[2017-08-14] MEDS: HALOPERIDOL LACTATE 5 MG/ML VIAL IVP PRN ×2 (16:21→23:49)
[2017-08-14 19:29] VITALS: BP 142/96
[2017-08-14 23:01] VITALS: BP 148/100
[2017-08-15 04:00] VITALS: BP 151/88
[2017-08-15 07:25] LABS: CALCIUM, TOTAL 8.4 mg/dL (8.8-10.5); CREATININE 1.49 mg/dL (0.60-1.30); MAGNESIUM 1.8 mg/dL (1.80-2.40); POTASSIUM 3.2 mmol/L (3.5-5.1)
[2017-08-15] MEDS ORDERED: POTASSIUM CHLORIDE 20 MEQ ER TABLET PO ONE (08:00)
[2017-08-15 08:02] VITALS: BP 145/92
[2017-08-15] MEDS: METOPROLOL TARTRATE 50 MG TABLET PO SCH ×2 (09:00→21:32)
[2017-08-15] MEDS: DOCUSATE SODIUM 100 MG CAPSULE PO SCH ×2 (09:17→21:32)
[2017-08-15] MEDS: AmLODIPine BESYLATE 5 MG TABLET PO SCH (09:19)
[2017-08-15] MEDS: PANTOPRAZOLE SODIUM 40 MG DR TABLET PO SCH (09:19)
[2017-08-15] MEDS: FUROSEMIDE 40 MG TABLET PO SCH (09:19)
[2017-08-15] MEDS: APIXABAN 5 MG TABLET PO SCH ×2 (09:19→21:32)
[2017-08-15] MEDS: SERTRALINE HCL 50 MG TABLET PO SCH (09:20)
[2017-08-15] MEDS: RIFAXIMIN 550 MG TABLET PO SCH ×2 (09:20→21:32)
[2017-08-15 12:05] VITALS: BP 135/89
[2017-08-15] MEDS: DEXTROSE 5%-0.2% SODIUM CHL 1,000 ML IV SCH (14:55)
[2017-08-15 16:09] VITALS: BP 156/99
[2017-08-15 19:28] VITALS: BP 150/89
[2017-08-15] MEDS: HALOPERIDOL LACTATE 5 MG/ML VIAL IVP PRN (23:33)
[2017-08-15 23:41] VITALS: BP 133/87
[2017-08-16 03:56] VITALS: BP 151/87
[2017-08-16 06:48] LABS: ALBUMIN URINE (ELP) 40.4 %
[2017-08-16 06:50] LABS: CREATININE 1.34 mg/dL (0.60-1.30); MAGNESIUM 1.7 mg/dL (1.80-2.40); POTASSIUM 3.7 mmol/L (3.5-5.1)
[2017-08-16 07:24] VITALS: BP 155/69
[2017-08-16] MEDS ORDERED: MAGNESIUM SULFATE 1 GM in DEXTROSE 5%-WATER 50 ML IV ONE (08:00)
[2017-08-16] MEDS: RIFAXIMIN 550 MG TABLET PO SCH ×2 (08:09→20:31)
[2017-08-16] MEDS: FUROSEMIDE 40 MG TABLET PO SCH (08:09)
[2017-08-16] MEDS: DOCUSATE SODIUM 100 MG CAPSULE PO SCH ×2 (08:09→20:31)
[2017-08-16] MEDS: AmLODIPine BESYLATE 5 MG TABLET PO SCH (08:09)
[2017-08-16] MEDS: APIXABAN 5 MG TABLET PO SCH ×2 (08:09→20:30)
[2017-08-16] MEDS: METOPROLOL TARTRATE 50 MG TABLET PO SCH ×2 (08:09→20:31)
[2017-08-16] MEDS: DEXTROSE 5%-0.2% SODIUM CHL 1,000 ML IV SCH ×2 (08:09→22:37)
[2017-08-16] MEDS: PANTOPRAZOLE SODIUM 40 MG DR TABLET PO SCH (08:09)
[2017-08-16] MEDS: SERTRALINE HCL 50 MG TABLET PO SCH (08:09)
[2017-08-16 11:21] VITALS: BP 129/94
[2017-08-16 15:07] VITALS: BP_SYST 134; BP_SYST 145; BP_DIAS 77; BP_DIAS 81
[2017-08-16 19:26] VITALS: BP 120/78
[2017-08-16 23:26] VITALS: BP 146/89
[2017-08-17 04:09] VITALS: BP 138/76
[2017-08-17 07:07] VITALS: BP 146/91
[2017-08-17 07:22] LABS: CALCIUM, TOTAL 7.8 mg/dL (8.8-10.5); CREATININE 1.47 mg/dL (0.60-1.30); MAGNESIUM 1.7 mg/dL (1.80-2.40); PHOSPHORUS 2.2 mg/dL (2.5-4.9); POTASSIUM 3.3 mmol/L (3.5-5.1)
[2017-08-17] MEDS ORDERED: MAGNESIUM SULFATE 1 GM in DEXTROSE 5%-WATER 50 ML IV ONE (07:45)
[2017-08-17] MEDS ORDERED: POTASSIUM PHOS,M-BASIC-D-BASIC 20 MEQ in DEXTROSE 5%-WATER 100 ML IV ONE (07:45)
[2017-08-17] MEDS: FUROSEMIDE 40 MG TABLET PO SCH (08:05)
[2017-08-17] MEDS: SERTRALINE HCL 50 MG TABLET PO SCH (08:06)
[2017-08-17] MEDS: AmLODIPine BESYLATE 5 MG TABLET PO SCH (08:06)
[2017-08-17] MEDS: DOCUSATE SODIUM 100 MG CAPSULE PO SCH (08:06)
[2017-08-17] MEDS: PANTOPRAZOLE SODIUM 40 MG DR TABLET PO SCH (08:06)
[2017-08-17] MEDS: METOPROLOL TARTRATE 50 MG TABLET PO SCH (08:06)
[2017-08-17] MEDS: RIFAXIMIN 550 MG TABLET PO SCH (08:07)
[2017-08-17] MEDS: APIXABAN 5 MG TABLET PO SCH (08:07)
[2017-08-17 11:30] VITALS: BP 137/58
[2017-08-17] MEDS ORDERED: POTASSIUM PHOS/SODIUM PHOS MIXTURE 1 POWDER PACKET PO ONE (11:30)
[2017-08-17] MEDS ORDERED: POTASSIUM CHLORIDE 20 MEQ ER TABLET PO ONE (11:30)
[2017-08-17] MEDS ORDERED: MAGNESIUM OXIDE 400 MG TABLET PO ONE (11:30)
== END 2017-08-17 14:13 | DRG 291 ==
LOC: EMS 10:57 → 5N 18:43 → 5S 08-02 18:20 → ICU 08-04 15:10 → 5S 08-13 18:00
PROVIDERS: ADMIT Internal Medicine; ATTEND Internal Medicine
PROC: 5A1955Z Respiratory Ventilation, Greater than 96 Consecutive Hours (ICD-10-PCS; principal; 2017-08-04)
PROC: 0BH17EZ Insertion of Endotracheal Airway into Trachea, Via Natural or Artificial Opening (ICD-10-PCS; 2017-08-04)
PROC: 5A1D70Z Performance of Urinary Filtration, Intermittent, Less than 6 Hours Per Day (ICD-10-PCS; 2017-08-05)
PROC: 5A1D70Z Performance of Urinary Filtration, Intermittent, Less than 6 Hours Per Day (ICD-10-PCS; 2017-08-08)
DX: I13.2 Hypertensive heart and chronic kidney disease with heart failure and with stage 5 chronic kidney disease, or end stage renal disease (principal); J96.00 Acute respiratory failure, unspecified whether with hypoxia or hypercapnia; G92 Toxic encephalopathy; N17.9 Acute kidney failure, unspecified; F33.2 Major depressive disorder, recurrent severe without psychotic features; E83.39 Other disorders of phosphorus metabolism; I07.1 Rheumatic tricuspid insufficiency; I50.23 Acute on chronic systolic (congestive) heart failure; N18.6 End stage renal disease; F10.239 Alcohol dependence with withdrawal, unspecified; E87.0 Hyperosmolality and hypernatremia; E87.2 Acidosis; J98.11 Atelectasis; N39.0 Urinary tract infection, site not specified; I48.92 Unspecified atrial flutter; I13.0 Hypertensive heart and chronic kidney disease with heart failure and stage 1 through stage 4 chronic kidney disease, or unspecified chronic kidney disease; I42.9 Cardiomyopathy, unspecified; I48.91 Unspecified atrial fibrillation; I48.2 Chronic atrial fibrillation; E83.42 Hypomagnesemia; F17.210 Nicotine dependence, cigarettes, uncomplicated; B96.20 Unspecified Escherichia coli [E. coli] as the cause of diseases classified elsewhere; F19.10 Other psychoactive substance abuse, uncomplicated; I16.0 Hypertensive urgency; E87.6 Hypokalemia; F15.10 Other stimulant abuse, uncomplicated; F20.9 Schizophrenia, unspecified; F39 Unspecified mood [affective] disorder; J44.9 Chronic obstructive pulmonary disease, unspecified; Z79.01 Long term (current) use of anticoagulants; Z79.82 Long term (current) use of aspirin; Z79.899 Other long term (current) drug therapy; Z99.2 Dependence on renal dialysis
CPT/HCPCS: 36245; 36556; 70450; 76770; 76937; 82271; 82570; 82784; 82805; 83605; 83735; 84100; 84132; 84145; 84155; 84156; 84165; 84166; 84443; 85007; 86038; 86160; 86334; 87040; 87070; 87081; 87086; 87205; 87324; 87340; 87449; 90935; 92526; 92610; 93005; 93306; 94002; 94003; 95816; 96365; 96375; 96376; 97110; 97112; 97116; 97163; 97165; 97530; 97535; 99291; G0480; J0282; J0360; J0690; J1160; J1630; J1644; J1940; J2060; J2270; J2704; J3411; J3475; J3490; J7030; J7050; J7060

== ENCOUNTER 2018-06-24 19:37 | Inpatient (IN) | payer MEDICARE ==
[~2018-06-24] VITALS: Ht 182.9 cm; Wt 91.2 kg
[~2018-06-24 19:37] MED LIST changes: -AMLO-511 PO; +CARV12 PO; -CARV6 PO; +DSS100 PO; -FURO20 PO; +LEVE500T53 PO; +MAGN400T25 PO; +PANT40TA25 PO; -RIVA15T PO
[2018-06-24 21:13] LABS: EOSINOPHILS % (AUTO) 0.8 % (1.0-6.0); HEMATOCRIT 33.1 % (41-53); HEMOGLOBIN 10.2 g/dL (13.5-17.5); LYMPHOCYTES # (AUTO) 1.3 K/uL (1.0-4.8); LYMPHOCYTES % (AUTO) 14.4 % (22.0-44.0); MEAN CORPUSCULAR HEMOGLOBIN 23.9 pg (26.0-34.0); MEAN CORPUSCULAR HGB CONC 30.8 G/dL (31.0-37.0); MEAN CORPUSCULAR VOLUME 78 fL (80-100); MONOCYTES # (AUTO) 1.3 K/uL (0.1-1.0); MONOCYTES % (AUTO) 14.4 % (2.0-9.0); NEUTROPHILS # (AUTO) 6.1 K/uL (1.8-7.7); NEUTROPHILS % (AUTO) 69.4 % (40.0-70.0); PLATELET COUNT (AUTO) 208 K/uL (150-450); RED BLOOD CELL COUNT(AUTO) 4.28 MIL/uL (4.50-5.90); RED CELL DISTRIBUTION WIDTH 19.3 % (11.5-14.5)
[2018-06-24] MEDS ORDERED: DILTIAZEM HCL 5 MG/ML 5 ML VIAL IVP ONE (21:15)
[2018-06-24 21:51] LABS: APPEARANCE,URINE CLEAR (CLEAR); BILIRUBIN,URINE NEGATIVE (NEGATIVE); GLUCOSE, URINE (UA) NEGATIVE (NEGATIVE); KETONES,URINE NEGATIVE (NEGATIVE); LEUKOCYTE ESTERASE ,URINE NEGATIVE (NEGATIVE); NITRATE,URINE NEGATIVE (NEGATIVE); OCCULT BLOOD,URINE TRACE (NEGATIVE); PH,URINE 6.5 (5.0-8.0); PROTEIN,URINE SEE CONFIRM (NEGATIVE); UROBILINOGEN,URINE 0.2 mg/dL (<=1.0)
[2018-06-24 21:52] LABS: TROPONIN I 0.07 ng/mL (0.00-0.05)
[2018-06-24 21:54] LABS: AMPHET/METH SCREEN,URINE NEGATIVE (NEGATIVE); BARBITURATE SCREEN, URINE NEGATIVE (NEGATIVE); BENZODIAZEPINES SCREEN,URINE NEGATIVE (NEGATIVE); CANNABINOID SCREEN,URINE NEGATIVE (NEGATIVE); COCAINE SCREEN,URINE NEGATIVE (NEGATIVE); METHADONE SCREEN, URINE NEGATIVE (NEGATIVE); OPIATE SCREEN,URINE NEGATIVE (NEGATIVE); PHENCYCLIDINE SCREEN,URINE NEGATIVE (NEGATIVE)
[2018-06-24 21:58] LABS: SULFOSALICYLIC ACID,URINE 4+ (Negative)
[2018-06-24 21:59] LABS: BACTERIA,URINE None Seen /HPF (None Seen); RBC,URINE 0-2 /HPF (0-2); WBC,URINE None Seen /HPF (0-5)
[2018-06-24 22:00] LABS: SQUAMOUS EPITHELIAL CELL,UR Rare /LPF (None Seen)
[2018-06-24 22:13] LABS: ALBUMIN 3.2 g/dL (3.4-5.0); BILIRUBIN,TOTAL 1.1 mg/dL (0.1-1.0); CREATININE 1.33 mg/dL (0.60-1.30); TOTAL PROTEIN, SERUM 7.3 g/dL (6.4-8.2)
[2018-06-24] MEDS ORDERED: CARVEDILOL 3.125 MG TABLET PO ONE (22:15)
[2018-06-24] MEDS ORDERED: FUROSEMIDE 40 MG/4 ML VIAL IVP ONE (22:15)
[2018-06-24 22:29] LABS: POTASSIUM 3.2 mmol/L (3.5-5.1)
[2018-06-24 22:44] LABS: INR 1.3 (0.9-1.1); PROTHROMBIN TIME 13.8 SEC (9.4-11.6)
[2018-06-24] MEDS ORDERED: ONDANSETRON HCL 4 MG/2 ML VIAL IVP PRN (23:15)
[2018-06-24] MEDS ORDERED: 0.9% SODIUM CHLORIDE 10 ML SYRINGE IVP PRN (23:15)
[2018-06-24] MEDS ORDERED: ACETAMINOPHEN 325 MG TABLET PO PRN (23:15)
[2018-06-25] MEDS ORDERED: 0.9% SODIUM CHLORIDE 10 ML SYRINGE IVP PRN
[2018-06-25] MEDS ORDERED: METOPROLOL TARTRATE 5 MG/5 ML VIAL IVP PRN
[2018-06-25] MEDS ORDERED: ONDANSETRON HCL 4 MG/2 ML VIAL IVP PRN
[2018-06-25 07:44] LABS: BASOPHILS % (AUTO) 1.2 % (0.0-2.0); EOSINOPHILS % (AUTO) 1.3 % (1.0-6.0); HEMATOCRIT 32.4 % (41-53); LYMPHOCYTES # (AUTO) 0.9 K/uL (1.0-4.8); LYMPHOCYTES % (AUTO) 16.2 % (22.0-44.0); MEAN CORPUSCULAR HEMOGLOBIN 24.5 pg (26.0-34.0); MEAN CORPUSCULAR VOLUME 79 fL (80-100); MONOCYTES # (AUTO) 0.6 K/uL (0.1-1.0); MONOCYTES % (AUTO) 10.7 % (2.0-9.0); NEUTROPHILS % (AUTO) 70.6 % (40.0-70.0); PLATELET COUNT (AUTO) 172 K/uL (150-450); RED BLOOD CELL COUNT(AUTO) 4.11 MIL/uL (4.50-5.90); RED CELL DISTRIBUTION WIDTH 19.6 % (11.5-14.5)
[2018-06-25 07:57] LABS: CALCIUM, TOTAL 8.8 mg/dL (8.8-10.5); CREATININE 1.48 mg/dL (0.60-1.30); MAGNESIUM 1.8 mg/dL (1.80-2.40); POTASSIUM 3.3 mmol/L (3.5-5.1)
[2018-06-25] MEDS: MAGNESIUM OXIDE 400 MG TABLET PO SCH (08:35)
[2018-06-25] MEDS: LevETIRAcetam 500 MG TABLET PO SCH ×2 (08:36→20:41)
[2018-06-25] MEDS: PANTOPRAZOLE SODIUM 40 MG/VIAL IVP SCH (08:36)
[2018-06-25] MEDS: HEPARIN SODIUM,PORCINE 5,000 UNITS/ML VIAL SQ SCH ×3 (08:37→16:03)
[2018-06-25] MEDS: CARVEDILOL 12.5 MG TABLET PO SCH ×3 (09:31→20:41)
[2018-06-25 13:52] VITALS: BP 128/74
[2018-06-25 16:40] VITALS: BP 135/86
[2018-06-25 18:22] VITALS: BP 135/86
[2018-06-25 18:55] VITALS: BP 110/75
[2018-06-25 19:44] VITALS: BP 134/93
[2018-06-25] MEDS ORDERED: POTASSIUM CHLORIDE 20 MEQ ER TABLET PO ONE (20:30)
[2018-06-25] MEDS: ISOSORB DINIT/HYDRALAZINE HCL 20-37.5 MG TABLET PO SCH (20:44)
[2018-06-25] MEDS ORDERED: 0.9% SODIUM CHLORIDE 5 ML NEB SOLUTION NEB ONE (21:03)
[2018-06-25] MEDS: ALBUTEROL SULFATE 2.5 MG/0.5 ML NEB SOLUTION NEB PRN (21:08)
[2018-06-25] MEDS: IPRATROPIUM BROMIDE 0.5 MG/2.5 ML NEB SOLUTION NEB PRN (21:08)
[2018-06-25] MEDS: FUROSEMIDE 20 MG/2 ML VIAL IVP SCH (21:24)
[2018-06-25 23:41] VITALS: BP 129/86
[2018-06-26] MEDS: HEPARIN SODIUM,PORCINE 5,000 UNITS/ML VIAL SQ SCH ×3 (00:32→17:08)
[2018-06-26] MEDS: ZOLPIDEM TARTRATE 5 MG TABLET PO PRN (01:43)
[2018-06-26] MEDS ORDERED: 0.9% SODIUM CHLORIDE 5 ML NEB SOLUTION NEB ONE (03:28)
[2018-06-26] MEDS: IPRATROPIUM BROMIDE 0.5 MG/2.5 ML NEB SOLUTION NEB PRN ×3 (03:33→20:22)
[2018-06-26] MEDS: ALBUTEROL SULFATE 2.5 MG/0.5 ML NEB SOLUTION NEB PRN ×3 (03:33→20:22)
[2018-06-26 04:48] VITALS: BP 168/94
[2018-06-26 06:42] LABS: BASOPHILS % (AUTO) 1.2 % (0.0-2.0); EOSINOPHILS % (AUTO) 2.2 % (1.0-6.0); HEMATOCRIT 32.6 % (41-53); HEMOGLOBIN 10.3 g/dL (13.5-17.5); LYMPHOCYTES # (AUTO) 1.1 K/uL (1.0-4.8); LYMPHOCYTES % (AUTO) 18.7 % (22.0-44.0); MEAN CORPUSCULAR HEMOGLOBIN 24.9 pg (26.0-34.0); MEAN CORPUSCULAR HGB CONC 31.6 G/dL (31.0-37.0); MEAN CORPUSCULAR VOLUME 79 fL (80-100); MONOCYTES # (AUTO) 0.6 K/uL (0.1-1.0); MONOCYTES % (AUTO) 10.5 % (2.0-9.0); NEUTROPHILS # (AUTO) 3.8 K/uL (1.8-7.7); NEUTROPHILS % (AUTO) 67.4 % (40.0-70.0); PLATELET COUNT (AUTO) 167 K/uL (150-450); RED BLOOD CELL COUNT(AUTO) 4.14 MIL/uL (4.50-5.90); RED CELL DISTRIBUTION WIDTH 19.4 % (11.5-14.5)
[2018-06-26 07:08] LABS: ALBUMIN 2.7 g/dL (3.4-5.0); BILIRUBIN,TOTAL 0.6 mg/dL (0.1-1.0); CALCIUM, TOTAL 8.6 mg/dL (8.8-10.5); CREATININE 2.11 mg/dL (0.60-1.30); MAGNESIUM 2.1 mg/dL (1.80-2.40); POTASSIUM 3.9 mmol/L (3.5-5.1); TOTAL PROTEIN, SERUM 6.2 g/dL (6.4-8.2)
[2018-06-26 07:45] VITALS: BP 129/88
[2018-06-26] MEDS: FUROSEMIDE 20 MG/2 ML VIAL IVP SCH ×2 (08:28→21:35)
[2018-06-26] MEDS: PANTOPRAZOLE SODIUM 40 MG/VIAL IVP SCH (08:28)
[2018-06-26] MEDS: MAGNESIUM OXIDE 400 MG TABLET PO SCH (08:28)
[2018-06-26] MEDS: LevETIRAcetam 500 MG TABLET PO SCH ×2 (08:28→21:33)
[2018-06-26] MEDS: ISOSORB DINIT/HYDRALAZINE HCL 20-37.5 MG TABLET PO SCH ×2 (08:29→21:33)
[2018-06-26] MEDS: CARVEDILOL 12.5 MG TABLET PO SCH ×2 (10:31→21:33)
[2018-06-26 11:11] VITALS: BP 164/97
[2018-06-26 15:27] VITALS: BP 140/99
[2018-06-26 20:25] VITALS: BP 130/95
[2018-06-27] VITALS (7 sets, daily range): BP systolic 100–145; BP diastolic 67–98
[2018-06-27] MEDS: HEPARIN SODIUM,PORCINE 5,000 UNITS/ML VIAL SQ SCH ×4 (00:14→23:36)
[2018-06-27 06:55] LABS: BASOPHILS % (AUTO) 1.4 % (0.0-2.0); EOSINOPHILS % (AUTO) 2.4 % (1.0-6.0); HEMATOCRIT 33.8 % (41-53); HEMOGLOBIN 10.5 g/dL (13.5-17.5); LYMPHOCYTES % (AUTO) 16.6 % (22.0-44.0); MEAN CORPUSCULAR HEMOGLOBIN 24.4 pg (26.0-34.0); MEAN CORPUSCULAR VOLUME 79 fL (80-100); MONOCYTES # (AUTO) 0.7 K/uL (0.1-1.0); MONOCYTES % (AUTO) 12.3 % (2.0-9.0); NEUTROPHILS % (AUTO) 67.3 % (40.0-70.0); PLATELET COUNT (AUTO) 178 K/uL (150-450); RED CELL DISTRIBUTION WIDTH 19.8 % (11.5-14.5)
[2018-06-27 07:34] LABS: ALBUMIN 2.8 g/dL (3.4-5.0); BILIRUBIN,TOTAL 0.6 mg/dL (0.1-1.0); CALCIUM, TOTAL 8.6 mg/dL (8.8-10.5); CREATININE 2.02 mg/dL (0.60-1.30); POTASSIUM 4.1 mmol/L (3.5-5.1); TOTAL PROTEIN, SERUM 6.6 g/dL (6.4-8.2)
[2018-06-27] MEDS: MAGNESIUM OXIDE 400 MG TABLET PO SCH (08:40)
[2018-06-27] MEDS: PANTOPRAZOLE SODIUM 40 MG/VIAL IVP SCH (08:41)
[2018-06-27] MEDS: LevETIRAcetam 500 MG TABLET PO SCH ×2 (08:41→19:51)
[2018-06-27] MEDS: CARVEDILOL 12.5 MG TABLET PO SCH ×2 (08:41→19:51)
[2018-06-27] MEDS: FUROSEMIDE 20 MG/2 ML VIAL IVP SCH ×2 (08:42→19:51)
[2018-06-27] MEDS: ISOSORB DINIT/HYDRALAZINE HCL 20-37.5 MG TABLET PO SCH ×2 (10:07→19:51)
[2018-06-28] VITALS: BP 146/104
[2018-06-28] MEDS: ZOLPIDEM TARTRATE 5 MG TABLET PO PRN (00:06)
[2018-06-28 04:52] VITALS: BP 131/96
[2018-06-28 05:57] LABS: EOSINOPHILS % (AUTO) 1.7 % (1.0-6.0); HEMATOCRIT 31.9 % (41-53); HEMOGLOBIN 9.9 g/dL (13.5-17.5); LYMPHOCYTES # (AUTO) 0.7 K/uL (1.0-4.8); LYMPHOCYTES % (AUTO) 16.2 % (22.0-44.0); MEAN CORPUSCULAR HEMOGLOBIN 24.4 pg (26.0-34.0); MEAN CORPUSCULAR HGB CONC 30.9 G/dL (31.0-37.0); MEAN CORPUSCULAR VOLUME 79 fL (80-100); MONOCYTES # (AUTO) 0.6 K/uL (0.1-1.0); MONOCYTES % (AUTO) 12.7 % (2.0-9.0); NEUTROPHILS # (AUTO) 3.1 K/uL (1.8-7.7); NEUTROPHILS % (AUTO) 68.4 % (40.0-70.0); PLATELET COUNT (AUTO) 153 K/uL (150-450); RED BLOOD CELL COUNT(AUTO) 4.04 MIL/uL (4.50-5.90); RED CELL DISTRIBUTION WIDTH 19.2 % (11.5-14.5)
[2018-06-28 07:22] LABS: ALBUMIN 2.6 g/dL (3.4-5.0); BILIRUBIN,TOTAL 0.4 mg/dL (0.1-1.0); CALCIUM, TOTAL 8.3 mg/dL (8.8-10.5); CREATININE 1.84 mg/dL (0.60-1.30); MAGNESIUM 2.1 mg/dL (1.80-2.40); POTASSIUM 3.9 mmol/L (3.5-5.1); TOTAL PROTEIN, SERUM 5.9 g/dL (6.4-8.2)
[2018-06-28 08:13] VITALS: BP 132/98
[2018-06-28] MEDS: HEPARIN SODIUM,PORCINE 5,000 UNITS/ML VIAL SQ SCH ×2 (08:19→15:45)
[2018-06-28] MEDS: ISOSORB DINIT/HYDRALAZINE HCL 20-37.5 MG TABLET PO SCH ×2 (08:20→15:45)
[2018-06-28] MEDS: MAGNESIUM OXIDE 400 MG TABLET PO SCH (08:20)
[2018-06-28] MEDS: PANTOPRAZOLE SODIUM 40 MG/VIAL IVP SCH (08:20)
[2018-06-28] MEDS: FUROSEMIDE 20 MG/2 ML VIAL IVP SCH (08:20)
[2018-06-28] MEDS: LevETIRAcetam 500 MG TABLET PO SCH (08:20)
[2018-06-28] MEDS: CARVEDILOL 12.5 MG TABLET PO SCH (08:20)
[2018-06-28 12:56] VITALS: BP 132/99
[2018-06-28 15:26] VITALS: BP 140/86
[2018-06-28] MEDS ORDERED: FURO20 PO (15:48)
[2018-06-28] MEDS ORDERED: CARV25 PO (15:48)
[2018-06-28] MEDS ORDERED: ISOS1TAB2 PO (15:48)
[2018-06-28] MEDS ORDERED: AUD NEB (15:49)
[2018-06-28] MEDS ORDERED: IPRNEB IH (15:50)
== END 2018-06-28 16:15 | disposition hospice, home (50) | DRG 291 ==
LOC: EMS 19:37 → AHU 06-25 12:29 → 5S 06-25 16:38 → 6N 06-27 12:19
PROVIDERS: ADMIT Internal Medicine; ATTEND Internal Medicine
DX: I13.0 Hypertensive heart and chronic kidney disease with heart failure and stage 1 through stage 4 chronic kidney disease, or unspecified chronic kidney disease (principal); I50.21 Acute systolic (congestive) heart failure; N17.9 Acute kidney failure, unspecified; I47.2 Ventricular tachycardia; I48.92 Unspecified atrial flutter; D64.9 Anemia, unspecified; N18.9 Chronic kidney disease, unspecified; E87.6 Hypokalemia; I48.0 Paroxysmal atrial fibrillation; R32 Unspecified urinary incontinence; Z87.820 Personal history of traumatic brain injury; Z87.891 Personal history of nicotine dependence; Z91.14 Patient's other noncompliance with medication regimen
CPT/HCPCS: 70450; 83735; 93005; 93306; 94640; 96374; 96375; 99291; C9113; G0378; J1644; J1940; J3490

== ENCOUNTER 2018-06-29 03:16 | Inpatient (IN) | payer MEDICARE ==
[2018-06-29] VITALS (9 sets, daily range): BP systolic 93–156; BP diastolic 57–110
[~2018-06-29] VITALS: Ht 182.9 cm; Wt 91.9 kg
[~2018-06-29 03:16] MED LIST changes: +AUD NEB; -CARV12 PO; +CARV25 PO; +FURO20 PO; +IPRNEB IH; +ISOS1TAB2 PO; -MAGN400T25 PO
[2018-06-29] MEDS ORDERED: IPRATROPIUM BROMIDE 0.5 MG/2.5 ML NEB SOLUTION NEB ONE (03:30)
[2018-06-29] MEDS ORDERED: ALBUTEROL SULFATE 5 MG/ML 20 ML NEB SOLN [BULK] NEB ONE (03:30)
[2018-06-29] MEDS ORDERED: 0.9% SODIUM CHLORIDE 15 ML NEB SOLUTION NEB ONE (03:33)
[2018-06-29] MEDS ORDERED: NITROGLYCERIN 2% (1 GM=INCH) PACKET TP ONE (04:15)
[2018-06-29 04:17] LABS: BASOPHILS % (AUTO) 0.8 % (0.0-2.0); EOSINOPHILS % (AUTO) 1.5 % (1.0-6.0); HEMATOCRIT 32.4 % (41-53); HEMOGLOBIN 9.8 g/dL (13.5-17.5); LYMPHOCYTES # (AUTO) 0.7 K/uL (1.0-4.8); LYMPHOCYTES % (AUTO) 12.1 % (22.0-44.0); MEAN CORPUSCULAR HEMOGLOBIN 24.2 pg (26.0-34.0); MEAN CORPUSCULAR HGB CONC 30.2 G/dL (31.0-37.0); MEAN CORPUSCULAR VOLUME 80 fL (80-100); MONOCYTES # (AUTO) 0.6 K/uL (0.1-1.0); MONOCYTES % (AUTO) 9.7 % (2.0-9.0); NEUTROPHILS # (AUTO) 4.6 K/uL (1.8-7.7); NEUTROPHILS % (AUTO) 75.9 % (40.0-70.0); PLATELET COUNT (AUTO) 160 K/uL (150-450); RED BLOOD CELL COUNT(AUTO) 4.05 MIL/uL (4.50-5.90); RED CELL DISTRIBUTION WIDTH 19.8 % (11.5-14.5)
[2018-06-29 04:25] LABS: CALCIUM, TOTAL 8.5 mg/dL (8.8-10.5); CREATININE 1.96 mg/dL (0.60-1.30); POTASSIUM 4.2 mmol/L (3.5-5.1)
[2018-06-29 04:31] LABS: ALBUMIN 2.9 g/dL (3.4-5.0); BILIRUBIN,TOTAL 0.4 mg/dL (0.1-1.0); TOTAL PROTEIN, SERUM 6.5 g/dL (6.4-8.2)
[2018-06-29] MEDS ORDERED: MORPHINE SULFATE 4 MG/ML SYRINGE IVP ONE (05:00)
[2018-06-29] MEDS ORDERED: FUROSEMIDE 40 MG/4 ML VIAL IVP ONE (05:00)
[2018-06-29] MEDS ORDERED: ONDANSETRON HCL 4 MG/2 ML VIAL IVP ONE (05:00)
[2018-06-29] MEDS ORDERED: ONDANSETRON HCL 4 MG/2 ML VIAL IVP PRN ×2 (06:00→06:15)
[2018-06-29] MEDS ORDERED: ACETAMINOPHEN 325 MG TABLET PO PRN (06:00)
[2018-06-29] MEDS ORDERED: 0.9% SODIUM CHLORIDE 10 ML SYRINGE IVP PRN (06:00)
[2018-06-29] MEDS ORDERED: ZOLPIDEM TARTRATE 5 MG TABLET PO PRN (06:15)
[2018-06-29] MEDS ORDERED: ALBUTEROL SULFATE 2.5 MG/0.5 ML NEB SOLUTION NEB PRN (06:15)
[2018-06-29] MEDS ORDERED: IPRATROPIUM BROMIDE 0.5 MG/2.5 ML NEB SOLUTION NEB PRN (06:15)
[2018-06-29] MEDS ORDERED: IPRATROPIUM BROMIDE 0.5 MG/2.5 ML NEB SOLUTION NEB SCH (07:00)
[2018-06-29] MEDS ORDERED: ALBUTEROL SULFATE 2.5 MG/0.5 ML NEB SOLUTION NEB SCH (07:00)
[2018-06-29] MEDS: ALBUTEROL SULFATE 2.5 MG/0.5 ML NEB SOLUTION NEB SCH ×3 (08:00→20:00)
[2018-06-29] MEDS: IPRATROPIUM BROMIDE 0.5 MG/2.5 ML NEB SOLUTION NEB SCH ×3 (08:00→20:00)
[2018-06-29] MEDS: ISOSORB DINIT/HYDRALAZINE HCL 20-37.5 MG TABLET PO SCH ×3 (09:11→22:01)
[2018-06-29] MEDS: FUROSEMIDE 20 MG/2 ML VIAL IVP SCH ×2 (09:11→20:51)
[2018-06-29] MEDS: HEPARIN SODIUM,PORCINE 5,000 UNITS/ML VIAL SQ SCH ×3 (09:11→23:49)
[2018-06-29] MEDS: PANTOPRAZOLE SODIUM 40 MG/VIAL IVP SCH (09:11)
[2018-06-29] MEDS: LISINOPRIL 5 MG TABLET PO SCH ×2 (09:11→20:50)
[2018-06-29] MEDS: CARVEDILOL 25 MG TABLET PO SCH ×2 (09:11→22:01)
[2018-06-29] MEDS: LevETIRAcetam 500 MG TABLET PO SCH ×2 (09:11→20:50)
[2018-06-30] MEDS: IPRATROPIUM BROMIDE 0.5 MG/2.5 ML NEB SOLUTION NEB SCH ×2 (02:00→08:17)
[2018-06-30] MEDS: ALBUTEROL SULFATE 2.5 MG/0.5 ML NEB SOLUTION NEB SCH ×2 (02:00→08:17)
[2018-06-30 05:19] VITALS: BP 112/75
[2018-06-30 06:33] LABS: BASOPHILS % (AUTO) 0.8 % (0.0-2.0); EOSINOPHILS % (AUTO) 2.7 % (1.0-6.0); HEMATOCRIT 26.9 % (41-53); HEMOGLOBIN 8.3 g/dL (13.5-17.5); LYMPHOCYTES # (AUTO) 0.8 K/uL (1.0-4.8); LYMPHOCYTES % (AUTO) 18.1 % (22.0-44.0); MEAN CORPUSCULAR HEMOGLOBIN 24.4 pg (26.0-34.0); MEAN CORPUSCULAR HGB CONC 30.8 G/dL (31.0-37.0); MEAN CORPUSCULAR VOLUME 79 fL (80-100); MONOCYTES # (AUTO) 0.5 K/uL (0.1-1.0); MONOCYTES % (AUTO) 11.3 % (2.0-9.0); NEUTROPHILS # (AUTO) 2.8 K/uL (1.8-7.7); NEUTROPHILS % (AUTO) 67.1 % (40.0-70.0); PLATELET COUNT (AUTO) 140 K/uL (150-450); RED BLOOD CELL COUNT(AUTO) 3.39 MIL/uL (4.50-5.90); RED CELL DISTRIBUTION WIDTH 20.2 % (11.5-14.5)
[2018-06-30 06:57] LABS: ALBUMIN 2.4 g/dL (3.4-5.0); BILIRUBIN,TOTAL 0.4 mg/dL (0.1-1.0); CALCIUM, TOTAL 8.2 mg/dL (8.8-10.5); CREATININE 2.01 mg/dL (0.60-1.30); POTASSIUM 3.6 mmol/L (3.5-5.1); TOTAL PROTEIN, SERUM 5.4 g/dL (6.4-8.2)
[2018-06-30 07:29] VITALS: BP 121/84
[2018-06-30] MEDS: FUROSEMIDE 20 MG/2 ML VIAL IVP SCH (08:20)
[2018-06-30] MEDS: LevETIRAcetam 500 MG TABLET PO SCH (08:22)
[2018-06-30] MEDS: PANTOPRAZOLE SODIUM 40 MG/VIAL IVP SCH (08:22)
[2018-06-30] MEDS: CARVEDILOL 25 MG TABLET PO SCH (08:22)
[2018-06-30] MEDS: HEPARIN SODIUM,PORCINE 5,000 UNITS/ML VIAL SQ SCH (08:23)
[2018-06-30] MEDS: ISOSORB DINIT/HYDRALAZINE HCL 20-37.5 MG TABLET PO SCH (08:23)
[2018-06-30] MEDS: LISINOPRIL 5 MG TABLET PO SCH (08:23)
[2018-06-30 12:04] VITALS: BP 106/67
== END 2018-06-30 14:10 | disposition home or self-care (01) | DRG 291 ==
LOC: EMS 03:16 → 5S 05:22
PROVIDERS: ADMIT Internal Medicine; ATTEND Internal Medicine
DX: I13.0 Hypertensive heart and chronic kidney disease with heart failure and stage 1 through stage 4 chronic kidney disease, or unspecified chronic kidney disease (principal); I50.43 Acute on chronic combined systolic (congestive) and diastolic (congestive) heart failure; N18.9 Chronic kidney disease, unspecified; Z91.19 Patient's noncompliance with other medical treatment and regimen; D64.9 Anemia, unspecified; F17.210 Nicotine dependence, cigarettes, uncomplicated; J44.9 Chronic obstructive pulmonary disease, unspecified; R00.0 Tachycardia, unspecified; F10.10 Alcohol abuse, uncomplicated; Y90.9 Presence of alcohol in blood, level not specified; Z87.820 Personal history of traumatic brain injury; Z51.5 Encounter for palliative care
CPT/HCPCS: 83735; 87040; 87081; 93005; 94640; 94644; 96374; 96375; C9113; G0378; J1644; J1940; J2270; J2405

== ENCOUNTER 2018-07-05 09:10 | Emergency (ER) | payer MEDICARE ==
[~2018-07-05] VITALS: Ht 177.8 cm; Wt 100.0 kg
[2018-07-05 10:09] LABS: GLUCOSE,POINT OF CARE 107 MG/DL (70-110)
[2018-07-05 11:04] VITALS: BP 128/94
== END 2018-07-05 11:15 | disposition home or self-care (01) ==
LOC: EMS 09:11
DX: Z00.00 Encounter for general adult medical examination without abnormal findings (principal); I11.0 Hypertensive heart disease with heart failure; I50.9 Heart failure, unspecified; I48.92 Unspecified atrial flutter; F17.210 Nicotine dependence, cigarettes, uncomplicated; Z79.899 Other long term (current) drug therapy